=== PATIENT | female | born 1960 | race Caucasian/White ===

== ENCOUNTER 2017-11-23 15:19 | Outpatient (CLI) | payer BC ==
--- NOTE | 2017-11-24 09:20 | MMO ---
BILATERAL DIGITAL SCREENING MAMMOGRAMS: History: 57-year-old female presents for digital screening mammography. Comparison: 18-17, 10-25-16, 10-30-15, 13, 09-16-12 This study is interpreted with the assistance of computer aided detection. FINDINGS: Scattered areas of fibroglandular density are noted bilaterally. Stable, typically benign calcificati ons. No direct or indirect evidence of malignancy. IMPRESSION: BIRADS category 2 - benign findings. POS: KATHY
== END 2017-11-23 15:20 | disposition home or self-care (01) ==
LOC: SCSMAMMO 15:19
PROVIDERS: ATTEND Obstetrics & Gynecology
DX: Z12.31 Encounter for screening mammogram for malignant neoplasm of breast (principal)
CPT/HCPCS: 77067

== ENCOUNTER 2018-01-26 10:47 | Outpatient (CLI) | payer BC | END 2018-01-26 10:48 | disposition home or self-care (01) | LOC: BICMAMMO 10:47 | PROVIDERS: ATTEND Obstetrics & Gynecology | DX: Z13.820 Encounter for screening for osteoporosis (principal); M85.80 Other specified disorders of bone density and structure, unspecified site | CPT/HCPCS: 77080 ==

== ENCOUNTER 2018-11-30 11:09 | Outpatient (CLI) | payer BC | END 2018-11-30 11:10 | disposition home or self-care (01) | LOC: BICMAMMO 11:09 | PROVIDERS: ATTEND Obstetrics & Gynecology | DX: Z12.31 Encounter for screening mammogram for malignant neoplasm of breast (principal); Z80.3 Family history of malignant neoplasm of breast; Z80.7 Family history of other malignant neoplasms of lymphoid, hematopoietic and related tissues | CPT/HCPCS: 77063; 77067 ==

== ENCOUNTER 2019-12-11 16:35 | Outpatient (CLI) | payer OTHER ==
--- NOTE | 2019-12-11 16:53 | MMO ---
Bilateral MAMMO Bilat Screen [facility]. CLINICAL HISTORY: Patient is 59 years old and is seen for screening. The patient has the following family history of breast cancer: mother. The patient has no personal history of cancer. VIEWS: The views performed were: bilateral craniocaudal with tomosynthesis and bilateral mediolateral oblique with tomosynthesis. FILMS COMPARED: The present examination has been compared to a prior imaging study performed at [facility] on 11/30/2018. This study has been interpreted with the assistance of computer-aided detection. MAMMOGRAM FINDINGS: The breasts are heterogeneously dense, which could obscure a lesion on mammography. There are no suspicious masses, suspicious calcifications, or new areas of architectural distortion. IMPRESSION: THERE IS NO MAMMOGRAPHIC EVIDENCE OF MALIGNANCY. A ROUTINE FOLLOW-UP MAMMOGRAM IN 1 YEAR IS RECOMMENDED. THE RESULTS OF THIS EXAM WERE SENT TO THE PATIENT. ACR BI-RADS Category 1 - Negative MAMMOGRAPHY NOTE: 1. A negative mammogram report should not delay a biopsy if a dominant of clinically suspicious mass is present. 2. Approximately 10% to 15% of breast cancers are not detected by mammography. 3. Adenosis and dense breasts may obscure an underlying neoplasm. Reported by: Marysol GARZON Electonically Signed: [id number]
== END 2019-12-11 16:36 | disposition home or self-care (01) ==
LOC: BICMAMMO 16:35
PROVIDERS: ATTEND Student in an Organized Health Care Education/Training Program
DX: Z12.31 Encounter for screening mammogram for malignant neoplasm of breast (principal); Z80.3 Family history of malignant neoplasm of breast
CPT/HCPCS: 77063; 77067

== ENCOUNTER 2020-05-02 10:50 | Outpatient (CLI) | payer OTHER ==
--- NOTE | 2020-05-02 11:22 | BD ---
EXAM: Bone densitometry using DEXA HISTORY: 60 yo female. Screening for postmenopausal osteoporosis FINDINGS: L1--bone mineral density 0.750 g/sq cm; T score -2.2 ; Z score -0.9 L2--bone mineral density 0.764 g/sq cm; T score -2.4 ; Z score -0.9 L3--bone mineral density 0.760 g/sq cm; T score -2.9 ; Z score -1.4 L4--bone mineral density 0.680 g/sq cm; T score -3.5 ; Z score -1.9 Total L1-L4--bone mineral density 0.735 g/sq cm; T score -2.8 ; Z score -1.3 Left femoral neck--bone mineral density0.642; T score -1.9 ; Z score -0.5 Total proximal left femur--bone mineral density 0.807; T score -1.1 ; Z score -0.1 There has been an interval reduction of 4.7% in the BMD of the lumbar spine and a improvement of 0. 7% in the BMD of the proximal femur since the previous study of 10/25/2015. IMPRESSION: Osteoporosis
== END 2020-05-02 10:51 | disposition home or self-care (01) ==
LOC: BICMAMMO 10:50
PROVIDERS: ATTEND Student in an Organized Health Care Education/Training Program
DX: M81.0 Age-related osteoporosis without current pathological fracture (principal)
CPT/HCPCS: 77080

== ENCOUNTER 2021-03-07 10:38 | Outpatient (CLI) | payer OTHER | END 2021-03-07 10:39 | disposition home or self-care (01) | LOC: BICMAMMO 10:38 | PROVIDERS: ATTEND Student in an Organized Health Care Education/Training Program | DX: Z12.31 Encounter for screening mammogram for malignant neoplasm of breast (principal); Z80.3 Family history of malignant neoplasm of breast | CPT/HCPCS: 77063; 77067 ==

== ENCOUNTER 2021-09-10 13:28 | Outpatient (CLI) | payer OTHER ==
[2021-09-10 16:01] LABS: PTT 26.1 sec (22.0-33.0); Prothrombin Time 10.9 sec (9.5-12.1)
[2021-09-10 16:03] LABS: Hemoglobin 12.5 g/dL (12.0-15.5); Mean Corpuscular Hemoglobin 30.9 pg (27.0-33.0); Mean Corpuscular Volume 93.6 fl (81.6-98.3); Mean Platelet Volume 13.4 fl (7.4-10.4); Platelet Count 251 10x3/uL (150-450); RBC Distribution Width 12.9 % (11.5-14.5); Red Blood Cell (RBC) Count 4.05 10x6/uL (3.90-5.03); White Blood Cell (WBC) Count 7.6 10x3/uL (3.5-10.5)
[2021-09-10 16:07] LABS: Anion Gap 13 mmol/L (10-20); BUN (Urea Nitrogen) 13 mg/dL (9.8-20.1); Calc. Creatinine Clearance 0 mL/min (70-130); Calcium 9.7 mg/dL (7.8-10.44); Carbon Dioxide 28 mmol/L (23-31); Chloride 107 mmol/L (98-107); Glucose 129 mg/dL (80-115); Potassium 3.9 mmol/L (3.5-5.1); Sodium 144 mmol/L (136-145)
[2021-09-11 21:07] LABS: SARS-CoV-2 PCR by NAA Not Detected (NotDetected)
== END 2021-09-10 13:29 | disposition home or self-care (01) ==
LOC: LABBT 13:28
PROVIDERS: ATTEND Urology
DX: Z01.818 Encounter for other preprocedural examination (principal); N20.2 Calculus of kidney with calculus of ureter; R35.0 Frequency of micturition; N28.1 Cyst of kidney, acquired; Z20.822 Contact with and (suspected) exposure to COVID-19
CPT/HCPCS: 80048; 85027; 85610; 85730; 93005; 93010; U0003; U0005

== ENCOUNTER 2021-09-15 06:32 | Day surgery (SDC) | payer OTHER ==
[2021-09-10 09:43] VITALS: BMI 28.1
[2021-09-15] MEDS ORDERED: Sodium Chloride 0.9% 100 ML ONE (07:10)
[2021-09-15] MEDS ORDERED: cefTRIAXone\\ROCEPHIN 2 GM VIAL ONE (07:10)
[2021-09-15] MEDS ORDERED: Iothalamate Meglumine 60% 50 ML VIAL FS ONE (08:36)
[2021-09-15] MEDS ORDERED: Fentanyl 100 MCG/2 ML VIAL ONE (08:51)
[2021-09-15] MEDS ORDERED: Ketorolac Tromethamine 30 MG/ML VIAL ONE (09:04)
[2021-09-15] MEDS ORDERED: ePHEDrine 50 MG/ML VIAL ONE (09:04)
[2021-09-15] MEDS ORDERED: Dexamethasone 20 MG/5 ML VIAL ONE (09:04)
[2021-09-15] MEDS ORDERED: Glycopyrrolate 0.2 MG/ML 5 ML SYRINGE ONE (09:04)
[2021-09-15] MEDS ORDERED: PROPOFOL 200 MG/20 ML VIAL ONE (09:04)
[2021-09-15] MEDS ORDERED: Ondansetron PF 4 MG/2 ML Vial ONE (09:04)
[2021-09-15] MEDS ORDERED: Rocuronium Bromide 10 MG/ML (10ML VIAL) ONE (09:04)
[2021-09-15] MEDS ORDERED: Lidocaine 1% PF 5 ML VIAL ONE (09:04)
[2021-09-15] MEDS ORDERED: SUGAMMADEX SODIUM 200 MG/2 ML VIAL ONE (09:59)
[2021-09-15] MEDS ORDERED: Phenazopyridine HCl 100 MG TAB ONE (10:27)
[2021-09-15] MEDS ORDERED: Meperidine HCl/PF 25 MG/ML VIAL ONE (10:27)
[2021-09-15] MEDS ORDERED: Oxybutynin 5 MG TAB ONE (10:27)
[2021-09-18 19:12] LABS: CA Oxalate Dihydrate 50 % (.); CA Oxalate Monohydrate 30 % (.); Color Brown (.); Stone Weight 29 mg (.)
== END 2021-09-15 12:15 | disposition home or self-care (01) ==
LOC: SDC 06:32
PROVIDERS: ATTEND Urology
PROC: 0T778DZ Dilation of Left Ureter with Intraluminal Device, Via Natural or Artificial Opening Endoscopic (ICD-10-PCS; principal; 2021-09-15)
PROC: 0TC48ZZ Extirpation of Matter from Left Kidney Pelvis, Via Natural or Artificial Opening Endoscopic (ICD-10-PCS; principal; 2021-09-15)
PROC: 0TC78ZZ Extirpation of Matter from Left Ureter, Via Natural or Artificial Opening Endoscopic (ICD-10-PCS; principal; 2021-09-15)
DX: N13.2 Hydronephrosis with renal and ureteral calculous obstruction (principal); R35.0 Frequency of micturition; N28.1 Cyst of kidney, acquired; M85.80 Other specified disorders of bone density and structure, unspecified site; Z79.2 Long term (current) use of antibiotics; Z79.899 Other long term (current) drug therapy; Z91.048 Other nonmedicinal substance allergy status
CPT/HCPCS: 74018; 74420; 82365; 88300; C2617; J0696; J1100; J1885; J2175; J2405; J2704; J3010; J3490; Q9961-U8

== ENCOUNTER 2021-12-19 11:56 | Outpatient (CLI) | payer BC | END 2021-12-19 11:57 | disposition home or self-care (01) | LOC: BICULT 11:56 | PROVIDERS: ATTEND Urology | DX: N20.0 Calculus of kidney (principal); N28.1 Cyst of kidney, acquired | CPT/HCPCS: 76770 ==

== ENCOUNTER 2022-05-18 14:09 | Outpatient (CLI) | payer BC | END 2022-05-18 14:10 | disposition home or self-care (01) | LOC: BICMAMMO 14:09 | PROVIDERS: ATTEND Student in an Organized Health Care Education/Training Program | DX: Z12.31 Encounter for screening mammogram for malignant neoplasm of breast (principal); Z80.3 Family history of malignant neoplasm of breast; Z91.89 Other specified personal risk factors, not elsewhere classified | CPT/HCPCS: 77063; 77067 ==

== ENCOUNTER 2022-12-21 10:48 | Outpatient (CLI) | payer BC | END 2022-12-21 10:49 | disposition home or self-care (01) | LOC: BICMAMMO 10:48 | PROVIDERS: ATTEND Student in an Organized Health Care Education/Training Program | DX: M81.0 Age-related osteoporosis without current pathological fracture (principal); M85.851 Other specified disorders of bone density and structure, right thigh; M85.852 Other specified disorders of bone density and structure, left thigh | CPT/HCPCS: 77080 ==

== ENCOUNTER 2023-11-09 12:40 | Outpatient (CLI) | payer BC | END 2023-11-09 12:41 | disposition home or self-care (01) | LOC: BICMAMMO 12:40 | PROVIDERS: ATTEND Student in an Organized Health Care Education/Training Program | DX: Z12.31 Encounter for screening mammogram for malignant neoplasm of breast (principal); Z80.3 Family history of malignant neoplasm of breast; Z91.89 Other specified personal risk factors, not elsewhere classified | CPT/HCPCS: 77063; 77067 ==